=== PATIENT | male | born 1975 | race Caucasian/White ===

== ENCOUNTER 2019-10-10 12:59 | Emergency (ER) | payer SELFPAY ==
[2019-10-10 13:19] VITALS: BP 140/82; PULSE 102; RESP 17; TEMP 36.8; O2SAT 98; BMI 25.7
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
[2019-10-10 13:50] VITALS: BP 140/82; PULSE 95; O2SAT 99
[2019-10-10] MEDS: tetanus-dipt-pertussis 0.5 mL SDV IM (13:57)
--- NOTE | 2019-10-21 17:05 | ED_ITS ---
HPI - Skin/Abscess/Foreign Bdy General: Chief complaint: Skin/Abscess/Foreign Body Stated complaint: arm pain Time Seen by Provider: 10/10/19 13:23 History of Present Illness: MD complaint: abscess/boil Location: RUE Severity: mild Relieving factors: none Associated symptoms: Deny chills, fever(s), nausea or vomiting Review of Systems Const: Denies: fever, chills or body aches Eyes: Denies: change in vision or blurry vision ENMT: Denies: throat pain or nasal congestion Card: Denies: chest pain or shortness of breath on exertion Resp: Denies: shortness of breath, productive cough or non-productive cough GI: Denies: abdominal pain, nausea or vomiting : Denies: difficulty urinating Musc: Denies: extremity pain Skin/Breast: Reports: other (late entry - boils/abcesss on arm, very small); Denies: rash Neuro: Denies: headache Psych: Denies: anxiety or depression Alhaji/Lymph: Denies: easy bruising PFSH ED PFSH: Social History Smoking and tobacco status: never smoked Physical Exam Const: COMMON NORMALS: no apparent distress, average body habitus and oriented x3 HENMT: COMMON NORMALS: normocephalic HEAD & SCALP: normal to inspection and normocephalic FACE & SINUS: normal facial exam Eye: COMMON NORMALS: conjunctivae normal GENERAL EYE: normal appearance of both eyes CONJUNCTIVA: Yes conjunctivae normal Neck/C-Spine: COMMON NORMALS: no JVD Chest: COMMONS NORMALS: inspection of chest normal Resp: COMMON NORMALS: normal respiratory effort and clear to auscultation bilaterally AUSCULTATION: clear to auscultation bilaterally Cardio: COMMON NORMALS: no JVD, regular rate and regular rhythm RATE: regular rate RHYTHM: regular rhythm GI: COMMON NORMALS: normal to inspection, nondistended, normoactive bowel sounds Extremity: COMMON NORMALS: normal to inspection and full ROM Neuro: COMMON NORMALS: oriented x3 Skin: OTHER: 2-3 small abcess to right arm I believe- late entry- I I&D one with minimal drainage Procedures Abscess I/D Site: upper extremity Side (if applicable): right Technique: incised with #11 blade Irrigation: No Packing used?: none Course Vital Signs: Vital signs: Vital Signs Temperature 98.2 F 10/10/19 13:19 Pulse Rate 95 10/10/19 13:50 Respiratory Rate 17 10/10/19 13:19 Blood Pressure 140/82 10/10/19 13:50 Pulse Oximetry 99 10/10/19 13:50 Discharge Plan Discharge Patient Disposition: Home, Self-Care Clinical Impression: Abscess of skin or subcutaneous tissue Condition: Stable Prescriptions: New tramadol 50 mg tablet 50 mg PO Q6H PRN (Reason: pain) Qty: 10 RF: 0 Discharge Orders: Discharge Order (Routine); Ordered 10/10/19 Ordered By: Jerad Harrington Referrals: Portillo Gaming MD [Family Provider] - Discharge Diet: Usual diet Discharge Activity: Increase activity as tolerated Patient Instructions: Abscess Incision and Drainage (ED) Activity Restrictions/Additional Instructions: Follow-up with medical provider as directed. Take medications as prescribed. Return to the ER or your medical provider if condition worsens. Please read and understand discharge instructions. If any questions ask please. Discharge Date/Time: 10/10/19 13:50 Coding Level of Care Code ED Production Line Welder for Jabari Avilez
== END 2019-10-10 13:50 | disposition home or self-care (01) ==
PROVIDERS: Emergency Provider Nurse Practitioner Family; Family Provider Family Medicine
DX: L02.414 Cutaneous abscess of left upper limb (principal); Z23 Encounter for immunization
CPT/HCPCS: 10060; 12345; 87070; 87077; 87186; 90471; 90715; 99282; A6446

== ENCOUNTER 2020-09-16 14:48 | Emergency (ER) | payer SELFPAY ==
[2020-09-16] VITALS (7 sets, daily range): BP systolic 122–141; BP diastolic 77–108; PULSE 98–115; RESP 20–28; TEMP 37.1; O2SAT 94–99; BMI 29.8
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
--- NOTE | 2020-09-16 14:50 | ECG_ITS ---
[facility] Test Date: 2020-09-16 Pat Name: Vishnu Aguiar Department: Room: Gender: Male Rest Room Attendant: : 1975 Requested By: Yamile Nance Order Number: [id number] Jodee MD: Hamzah May M.D. Measurements Intervals [place] Rate: 107 P: 62 W[place]: 160 QRS: 59 QRSD: 88 T: 45 QT: 315 QTc: 420 Interpretive Statements SINUS TACHYCARDIA ABNORMAL RHYTHM ECG No previous ECG available for comparison Electronically Signed On 09-16-2020 20:39:23 CDT by Hamzah May M.D. [id number]
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
[2020-09-16 15:03] LABS: Basophils % 0.1 %; Eosinophils % 0.1 %; Hematocrit 37.9 % (42.0-52.0); Hemoglobin 12.5 g/dL (11.7-16.6); Lymphocytes # 1.4 10^3/uL (0.8-4.8); Lymphocytes % 11.8 %; Mean Corpuscular Hemoglobin 28.3 pg (28.0-34.0); Mean Corpuscular Volume 85.7 fL (80-94); Mean Platelet Volume 8.6 fL (7.4-10.4); Monocytes # 0.9 10^3/uL (0.2-0.9); Monocytes % 7.9 %; Neutrophils # 9.19 10^3/uL (1.8-7.7); Neutrophils % 79.8 %; Nucleated Red Blood Cells % 0 %; Platelet Count 297 10^3/cmm (130-400); Red Blood Count 4.42 10^6/uL (4.1-5.3); Red Cell Distribution Width 12.3 % (12.1-15.1); White Blood Count 11.5 10^3/uL (4.0-10.0)
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
[2020-09-16] MEDS: iohexol 300 mg/mL 100 mL Btl IV (15:12)
[2020-09-16 15:27] LABS: Alanine Aminotransferase 27 U/L (0-41); Albumin Level 4.3 g/dL (3.5-5.2); Alkaline Phosphatase 91 IU/L (40-130); Anion Gap 12.9 (5-19); Aspartate Amino Transferase 17 U/L (0-40); Blood Urea Nitrogen 8 mg/dL (6-20); Calcium 9.1 mg/dL (8.5-10.5); Carbon Dioxide 24 mmol/L (22-29); Chloride 101 mmol/L (98-107); Globulin 2.4 g/dL (1.3-4.6); Glomerular Filtration Rate 91.7 mL/min (90-130); Glucose 96 mg/dL (65-115); Osmolality Calculated 276 mOsm/kg (285-295); Potassium 3.9 mmol/L (3.5-5.1); Sodium 134 mmol/L (136-145); Total Bilirubin 0.8 mg/dL (0.15-1.2); Total Protein 6.7 g/dL (6.6-8.7)
--- NOTE | 2020-09-16 15:39 | PC.NURSE ---
Pt report called to Gabriel Gomes RN at [facility].
[2020-09-16] MEDS: morphine 4 mg/mL SDV 1 mL IVP (16:03)
[2020-09-16] MEDS: ondansetron 2 mg/ML SDV 2 mL 4 MG IVP (16:03)
[2020-09-16] MEDS: tetanus-dipt-pertussis 0.5 mL SDV IM (16:04)
[2020-09-16 16:18] LABS: INR 0.95 (0.8-1.2)
[2020-09-16 16:24] LABS: Lactic Sepsis W/Reflex 0.7 mmol/L (0.5-2.2)
== END 2020-09-16 16:18 | disposition short-term general hospital (02) ==
PROVIDERS: Emergency Provider Emergency Medicine
DX: S21.332A Puncture wound without foreign body of left front wall of thorax with penetration into thoracic cavity, initial encounter (principal); S01.93XA Puncture wound without foreign body of unspecified part of head, initial encounter; S22.22 Fracture of body of sternum; W34.010A Accidental discharge of airgun, initial encounter; Z23 Encounter for immunization
CPT/HCPCS: 70450; 71045; 71260; 80053; 83605; 85025; 85610; 90471; 90715; 93005; 96365; 96375; 99285; 99291; J0690; J2270; J2405; Q9967

== ENCOUNTER → 2022-03-21 08:11 | Outpatient (BNVA) | payer SELFPAY | PROVIDERS: PCP Family Medicine; Visit Provider Family Medicine | DX: Z00.00 Encounter for general adult medical examination without abnormal findings (principal); F19.11 Other psychoactive substance abuse, in remission; L81.8 Other specified disorders of pigmentation; F10.21 Alcohol dependence, in remission; F15.21 Other stimulant dependence, in remission; F60.89 Other specific personality disorders | CPT/HCPCS: 80053; 80061; 85025; 86705; 86706; 86709; 86803; 87340; 87522; 87806 ==

== ENCOUNTER → 2022-04-20 10:39 | Outpatient (BNVA) | payer SELFPAY | PROVIDERS: PCP Family Medicine; Visit Provider Student in an Organized Health Care Education/Training Program | DX: B19.20 Unspecified viral hepatitis C without hepatic coma (principal); R76.8 Other specified abnormal immunological findings in serum | CPT/HCPCS: 86592; 87491; 87517; 87591; 87902 ==

== ENCOUNTER 2022-05-23 11:28 | Day surgery (SDC) | payer OTHER, SELFPAY ==
[2022-05-22 09:13] VITALS: BMI 29.8
[2022-05-23] VITALS (9 sets, daily range): BP systolic 107–121; BP diastolic 68–76; PULSE 45–91; RESP 16–20; TEMP 36.2–36.7; O2SAT 97–100
[2022-05-23] MEDS: diphenhydrAMINE 50 mg/mL SDV 1mL 12.5 MG IVP (11:55)
[2022-05-23] MEDS: heparin 5,000 unit/mL INJ 1 mL 2000 UNIT SUBCUT (11:55)
[2022-05-23] MEDS: acetaminophen 1,000 MG/100 ML PIGGYBACK 400 MG IV (11:56)
[2022-05-23] MEDS: sodium chloride 0.9% 1,000 ML 30 ML IV (11:56)
--- NOTE | 2022-05-23 12:30 | W.PM.OPSUD ---
Surgery/Procedure H&P Update DATE OF PROCEDURE: May 23, 2022 DATE H&P PERFORMED: 04/27/22 H&P UPDATE INFORMATION: I have reviewed H&P completed within last 30 days, I have examined patient prior to procedure and No changes to prior documentation PREOP DIAGNOSIS: Right groin hernia PRIMARY INDICATION FOR PROCEDURE: The same PLANNED PROCEDURE: Operation Date: 05/23/22 12:25 Proposed Procedures p [id number] right open inguinal hernia repair with mesh K40.90(Right) - Kwabena Penn MD
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
[2022-05-23] MEDS: ceFAZolin 2,000 MG in sodium chloride 0.9% (plus) 50 ML 100 MG IV (12:59)
[2022-05-23] MEDS: lidocaine 1% INJ 20 mL XX (13:31)
--- NOTE | 2022-05-23 14:09 | P.OP_ITS ---
Operative Report Date of procedure: May 23, 2022 Pre-op diagnosis: Preop Diagnosis Right groin hernia Post-op findings: Lipoma of the cord Direct inguinal hernia Procedure done: Right open inguinal hernia repair with mesh placement and excision of lipoma of the cord. Implants: Right inguinal hernia polypropylene mesh(sheet and a cone medium size). 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 Time-out was done verifying the patient's name/date of /planned procedure destination after the procedure, all were in agreement. SCDs confirmed to be functioning, preoperative antibiotics administered per protocol, and beta johnny protocol was confirmed. I started with a right groin incision 1-1/2 finger above the inguinal ligament towards the pubic tubercle, used 15 blade knife skin incision , continued to dissect using Bovie to subcutaneous, Clari's fascia down to the external oblique aponeurosis, large right indirect inguinal hernia extending to the scrotum was identified, external oblique aponeurosis was then incised using a 10 blade knife, after application of 2 hemostats across sides of the fascia and opened it, right ileo-inguinal nerve was safeguard, I managed to dissect and deliver the enlarged spermatic cord out of the wound, and placed a Steven drain for traction and countertraction, I dissected the spermatic cord and the vas deferens is identified and safeguarded ,as I identified Direct hernia component, that Was dissected from the right spermatic cord.Lipoma of the cord was dissected and excised and sent for pathology after transfixing suture 2-0 silk suture. I was able to identify wide and deep inguinal ring.And attenuated fascia transversalis. Attention was now deviated to mesh placement , using polypropylene mesh system was applied tension-free(Medial size), a cone was applied at the deep inguinal ring stabilized by 2-0 silk sutures, plication of the fascia transversalis using 2-0 silk was achieved followed by application of a sheet of mesh was applied onto the floor of the posterior wall of the right inguinal canal and anchored medially to the pubic tubercle then inferiorly to the underlying surface of the inguinal ligament and superiorly to the internal oblique aponeurosis using 2-0 silk suture, both limbs of the mesh encircled the exit of the cord at the deep inguinal ring, and stitched down. The cord maintained to be in good position thorough irrigation of the wound was done with normal saline and closure of the external oblique aponeurosis was done by 2/O Vicryl, followed by approximation of Clari's fascia by 3-0 Vicryl then Skin arturo to close the skin,Dry dressing was then applied. Counts of instruments, sponges and needles were completed at the end of the p rocedure. Scrotal support was then placed Patient tolerated the procedure well and was taken to the recovery area after extubation I was present for the whole entire procedure
[2022-05-23] MEDS: HYDROcodone-acetaminophen 5-325 mg Tablet 1 TAB PO (15:11)
--- NOTE | 2022-05-23 16:22 | ANE.PACU2 ---
Inpatient post-anesthesia follow up: Airway intact: Yes Vital signs: Temperature 97.9 F Pulse Rate 67 Respiratory Rate 16 Blood Pressure 119/72 Pulse Oximetry 100 Oxygen Delivery Me thod Room Air Oxygen Flow Rate Fraction of Inspir ed Oxygen Hydration adequate: Yes Nausea and vomiting: No Pain level: 1 Mental status: Baseline
== END 2022-05-23 15:40 | disposition home or self-care (01) ==
PROVIDERS: PCP Family Medicine; Visit Provider Surgery
PROC: (CPT 49505; principal; 2022-05-23 12:15)
DX: K40.90 Unilateral inguinal hernia, without obstruction or gangrene, not specified as recurrent (principal); D17.6 Benign lipomatous neoplasm of spermatic cord; Z86.14 Personal history of Methicillin resistant Staphylococcus aureus infection; Z87.891 Personal history of nicotine dependence
CPT/HCPCS: 49505; 88304; C1781; J0131; J0690; J1100; J1170; J1200; J1644; J2405; J2704; J2710; J3010; J3490; J7030

== ENCOUNTER → 2023-01-30 13:14 | Outpatient (BNVA) | payer OTHER, SELFPAY | PROVIDERS: PCP Family Medicine; Visit Provider Family Medicine | DX: N34.2 Other urethritis (principal); R36.9 Urethral discharge, unspecified | CPT/HCPCS: 81000; 87491; 87591 ==

== ENCOUNTER 2023-12-14 17:50 | Emergency (ER) | payer SELFPAY ==
[2023-12-14 17:53] VITALS: BP 144/68; PULSE 102; RESP 20; TEMP 36.6; O2SAT 98
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
[2023-12-14] MEDS: lidocaine 2% viscous 15 mL UDC TOPICAL (18:17)
[2023-12-14] MEDS: HYDROcodone-acetaminophen 7.5-325 mg Tablet 1 TAB PO (18:17)
[2023-12-14 18:41] VITALS: BP 139/70; PULSE 96; RESP 18; O2SAT 97
== END 2023-12-14 18:42 | disposition home or self-care (01) ==
PROVIDERS: Emergency Provider Physician Assistant; PCP Family Medicine
DX: S02.5XXA Fracture of tooth (traumatic), initial encounter for closed fracture (principal); X58.XXXA Exposure to other specified factors, initial encounter; Z87.891 Personal history of nicotine dependence
CPT/HCPCS: 99283